=== PATIENT | male | born 1975 | race American Indian/Alaskan Native ===

== ENCOUNTER 2019-08-05 00:23 | Emergency (ER) | payer SELFPAY ==
[2019-08-05 01:02] VITALS: BP 147/77
== END 2019-08-05 06:30 | disposition left against medical advice (07) ==
LOC: ED 00:23
DX: H53.8 Other visual disturbances (principal); Z53.21 Procedure and treatment not carried out due to patient leaving prior to being seen by health care provider
CPT/HCPCS: 82962

== ENCOUNTER 2020-03-16 00:54 | Emergency (ER) | payer SELFPAY ==
[2020-03-16 01:10] VITALS: BP 119/73
== END 2020-03-16 01:22 | disposition left against medical advice (07) ==
LOC: ED 00:54
DX: Z53.21 Procedure and treatment not carried out due to patient leaving prior to being seen by health care provider (principal)
CPT/HCPCS: 82962

== ENCOUNTER 2020-08-30 08:31 | Emergency (ER) | payer SELFPAY ==
[2020-08-30 08:53] VITALS: BP 161/91
--- NOTE | 2020-08-30 09:05 | Emergency Department Report ---
ED General Adult HPI - General Chief complaint: Medical Clearance Stated complaint: SUGAR CHECK Time Seen by Provider: 08/30/20 09:00 Source: patient Mode of arrival: Ambulatory Limitations: No Limitations - History of Present Illness Initial comments: 24-year-old male with a past medical history of type 1 diabetes currently on insulin presents to the ER today for blood sugar check. Patient states that he usually check his sugar every 2 to 3 days but his glucometer has been broken for the past 2 days. He states that he does not currently have a primary care doctor. He states he has been compliant with his insulin. He is able to get his insulin [id number] at [facility]. He reports a mild headache today but denies any other symptoms at this time. MD Complaint: Blood sugar check -: days(s) (today ) - Related Data Allergies Allergy/AdvReac Type Severity Reaction Status Date / Time No Known Allergies Allergy Verified 08/05/19 00:48 ED Review of Systems ROS: Stated complaint: SUGAR CHECK Other details as noted in HPI ED Past Medical Hx - Past Medical History Previous Medical History?: Yes Hx Diabetes: Yes - Social History Smoking Status: Current Some Day Smoker Substance Use Type: Marijuana, Other ED Physical Exam - General Limitations: No Limitations General appearance: alert, in no apparent distress - Head Head exam: Present: atraumatic, normocephalic, normal inspection - Eye Eye exam: Present: normal appearance, PERRL, EOMI Pupils: Present: normal accommodation - ENT ENT exam: Present: normal exam, mucous membranes moist - Neck Neck exam: Present: normal inspection - Respiratory Respiratory exam: Present: normal lung sounds bilaterally. Absent: respiratory distress - Cardiovascular Cardiovascular Exam: Present: regular rate, normal rhythm, normal heart sounds - Neurological Exam Neurological exam: Present: alert, oriented X3, CN II-XII intact, normal gait - Psychiatric Psychiatric exam: Present: normal affect, normal mood - Skin Skin exam: Present: intact ED Course Vital Signs 08/30/20 08:51 Temperature 98.0 F Pulse Rate 73 Respiratory 18 Rate Blood Pressure 161/91 O2 Sat by Pulse 99 Oximetry ED Medical Decision Making - Medical Decision Making Patient blood sugar in triage 220. No indication for any emergent intervention at this time. Discussed with patient and informed him that I will give him a referral to local primary care doctor for continued monitoring of his blood sugar and to get another glucometer. He can also purchase one from [id number]. Santana is well-appearing, not toxic, he is not in any acute distress and he appears well-hydrated. He is mentally stable and neurologically intact with a normal gait through the ER. He is vital signs are stable. Patient expressed understanding of instructions and agree with plan. Patient stable at time of discharge. Critical care attestation.: If time is entered above; I have spent that time in minutes in the direct care of this critically ill patient, excluding procedure time. ED Disposition Clinical Impression: Encounter for medical screening examination, Type 1 diabetes mellitus Disposition: - TO HOME OR SELFCARE Is pt being admited?: No Does the pt Need Aspirin: No Condition: Stable Instructions: Type 1 Diabetes Mellitus, Self Care, Adult, [id number], Diabetes Mellitus Type 2 in Adults (ED) Additional Instructions: Follow-up with the primary care doctor listed on your discharge instructions for continued monitoring of your blood sugar and to get a another glucometer. Continue to be compliant with your diabetes medication. Drink lots of water. Return to the ER if anything changes or worsens. Referrals: DUANE MARTINEZ MD [Staff Physician] - 3-5 Days Forms: Work/School Release Form(ED) Time of Disposition: 09:07
== END 2020-08-30 09:29 | disposition home or self-care (01) ==
LOC: ED 08:31
DX: E10.9 Type 1 diabetes mellitus without complications (principal); F12.90 Cannabis use, unspecified, uncomplicated; F17.200 Nicotine dependence, unspecified, uncomplicated; Z79.899 Other long term (current) drug therapy; Z13.9 Encounter for screening, unspecified
CPT/HCPCS: 82962; 99283

== ENCOUNTER 2021-01-26 05:02 | Emergency (ER) | payer SELFPAY ==
[2021-01-26] MEDS ORDERED: SODIUM CHLORIDE 0.9% 1000 ML 1,000 ML IV ONE (08:12)
[2021-01-26 10:41] VITALS: BP 176/93
== END 2021-01-26 07:00 | disposition left against medical advice (07) ==
LOC: ED 05:02
DX: R73.9 Hyperglycemia, unspecified (principal); Z53.21 Procedure and treatment not carried out due to patient leaving prior to being seen by health care provider
CPT/HCPCS: 82962